=== PATIENT | female | born 1990 | race African-American/Black ===

== ENCOUNTER 2016-07-12 21:15 | Emergency (ER) | payer OTHER, MEDICAID ==
[~2016-07-12] VITALS: Ht 165.1 cm; Wt 83.0 kg
[2016-07-12] MEDS ORDERED: LIDOCAINE HCL 1% 20ML VIAL (Pyxis) INJ MC ONE (23:45)
[2016-07-13] MEDS ORDERED: HYDROCODONE/ACETAMINOPHEN 5/325MG TABLET PO ONE (02:30)
[2016-07-13 06:46] VITALS: BP 121/71
== END 2016-07-13 07:21 | disposition short-term general hospital (02) ==
LOC: ER 23:42
DX: S61.217A Laceration without foreign body of left little finger without damage to nail, initial encounter (principal); W26.0XXA Contact with knife, initial encounter; Y93.89 Activity, other specified; Y92.89 Other specified places as the place of occurrence of the external cause; Y99.8 Other external cause status
CPT/HCPCS: 12001; 73140; 81025; 99285; J3490; X7700; Z7610